=== PATIENT | female | born 1965 | race African-American/Black ===

== ENCOUNTER 2017-05-02 09:44 | Day surgery (SDC) | payer BC, OTHER ==
[2017-05-01 14:23] VITALS: BMI 26.3
[2017-05-02] MEDS ORDERED: Fentanyl 100 MCG/2 ML VIAL ONE (10:24)
[2017-05-02] MEDS ORDERED: Midazolam HCl 2 mg/2 ml Vial ONE (10:24)
[2017-05-02 11:03] LABS: Hematocrit 40.4 % (36.0-47.0); Mean Platelet Volume 8.6 fL (7.4-10.4); Red Blood Cell (RBC) Count 4.66 mill/uL (4.20-5.40); White Blood Cell (WBC) Count 6.7 thou/uL (4.8-10.8)
[2017-05-02] MEDS ORDERED: CEFAZOLIN/Water 2 GM/20 ML SYRINGE ONE (11:05)
--- NOTE | 2017-05-02 12:57 | OP ---
DATE OF PROCEDURE: 05/02/2017 PREOPERATIVE DIAGNOSIS: Left distal radius fracture. POSTOPERATIVE DIAGNOSIS: Left distal radius fracture. PROCEDURE PERFORMED: 1. Open reduction internal fixation left distal radius fracture. 2. Short arm splint. STAFF: Augustine Chaudhry M.D. CHECKING CLERK: AKASH Feliciano ANESTHESIA: Anton Pittman. The patient received LMA with a single shot supraclavicular. ESTIMATED BLOOD LOSS: Less than 20 mL. TOURNIQUET TIME: 35 minutes at 250 mmHg. ANTIBIOTICS: Ancef 2 grams. IMPLANTS: A 2-4 2-7 variable angle [employer] distal radius plate with four 2-4 locking screws, three 2 -7 nonlocking screws. COMPLICATIONS: None. HISTORY OF PRESENT ILLNESS: Ms. Mathew is a pleasant 52-year-old female who fell on 04/28/2017. 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 The patient had dorsal angulatio n greater than 20 degrees. I discussed with patient the risks and benefits of operative intervention to improve overall outcome. I discussed risks and benefits of surgery to include pain, scar, bleedi ng, infection, damage to vital structures, nerves, arteries and tendons, tear and need for further jones rgery, failure of procedure, continued pain despite surgical intervention. The patient understood th e risks and benefits of surgery and elected to proceed. PROCEDURE IN DETAIL: After timeout, the tourniquet was brought up and left up for a total of 35 jonnathan javi. A midline incision was made just over the FCR. We came down on the FCR, we split, retracted ul narly, came down to the fascia with the palmaris longus, pulled the palmaris longus out of the way, c lavonne on the pronator quadratus, split it with the muscle. I used a [place] elevator elevated the muscle off the bone. We exposed the distal radius fracture. We washed out the distal radius. We then chos e a 4-hole plate, put it into position, we reduced the fracture and position. We then placed our to ggle screw hole 2.7 screw and it was translated on the shaft. Being happy with the position, we then reduced it and pinned it into place. We had good reduction on AP and lateral radiographs. I was ov erall happy with the position of the wrist and improved volar tilt, we then sequentially placed 4 dis josafat locking screws from inside out, 2 inside holes and 2 outside holes and looked at AP and lateral r adiographs an ulnar deviated view to ensure that I was out of the joint. I then moved proximally, pl aced a 2.7 screws, drilled bicortically, placed 2.7 screws and washed, closed the pronator quadratus with 2-0 sutures, closed subcu with 2-0 Vicryl and skin with 3-0 nylon. We washed, closed, placed he r in a volar splint. The patient will follow up with me in 2 weeks, remain in a splint until I see her back. Finger motio n. She was given hydrocodone for pain relief.
--- NOTE | 2017-05-02 15:32 | RAD ---
FOUR INTRAOPERATIVE FLUOROSCOPIC IMAGES OF LEFT WRIST: Date: 05-02-17 History: ORIF FINDINGS: There is volar plate and screws transfixing a distal radial metaphyseal fracture. No hardware complic ation is seen. There is a fracture involving the ulnar styloid process. IMPRESSION: 1. Internal fixation of distal right radial metaphyseal fracture. 2. Ulnar styloid process avulsion fracture. POS: OFF
[2017-05-02] MEDS ORDERED: Ondansetron HCl/PF 4 MG/2 ML Vial ONE (16:53)
[2017-05-02] MEDS ORDERED: Ketorolac Tromethamine 30 MG/ML VIAL ONE (16:53)
[2017-05-02] MEDS ORDERED: PHENYLEPHRINE-NS 100 MCG/ML 10 ML SYRINGE ONE (16:53)
[2017-05-02] MEDS ORDERED: Lidocaine 1% PF 5 ML VIAL ONE (16:53)
[2017-05-02] MEDS ORDERED: Propofol 200 MG/20 ML VIAL ONE (16:53)
== END 2017-05-03 14:10 | disposition home or self-care (01) ==
LOC: SDC 09:44
PROVIDERS: ATTEND Orthopaedic Surgery
PROC: 0PSJ04Z Reposition Left Radius with Internal Fixation Device, Open Approach (ICD-10-PCS; principal; 2017-05-03)
DX: S52.502A Unspecified fracture of the lower end of left radius, initial encounter for closed fracture (principal); I10 Essential (primary) hypertension; Z79.899 Other long term (current) drug therapy; Z98.890 Other specified postprocedural states
CPT/HCPCS: 36415; 76001; 85027; C1713; C1769; J1885; J2001; J2250; J2405; J2704; J3010